=== PATIENT | female | born 1955 | race Caucasian/White ===

== ENCOUNTER → 2016-10-27 | Outpatient (CLI) | payer MEDICARE ==
--- NOTE | 2016-10-29 07:47 | XCELERA REPORT ---
[address] [address] Lower Extremity Arterial Evaluation Name: JAZMINE DUBOIS Age: 60 yrs Gender: Female : 1955 Patient Status: Outpatient Patient Location: Study Date: 10/27/2016 12:49 PM Procedure: A color flow and duplex scan of the lower extremity arteries was performed bilaterally with velocity and waveform anaylsis. Ankle brachial indicies performed. Reason For Study: ULCER Ordering Physician: MIKE ALCALA Performed By: Maureen Castaneda Measurements and Calculations Right Left TEACHING MANAGER PSV 113.1 215.5 cm/sec Prox PFA PSV -55.4 121.5 cm/sec Prox SFA PSV 84.1 146.7 cm/sec Mid SFA PSV -63.8 -128.9 cm/sec Dist SFA PSV -69.5 -111.4 cm/sec Prox Pop A PSV 59.1 99.8 cm/sec Dist BRIGIDA PSV 68.8 159.9 cm/sec Dist COMPUTER TECHNICAL SUPPORT SPECIALIST PSV 62.2 127.4 cm/sec Justice Pedis PSV 76.4 144.6 cm/sec Right Side Arterial Evaluation Slightly abnormal velocity, broadened, monophasic flow are present, from the Common Femoral artery down to the infrageniculate vessels. The ankle-brachial index is 0.7. 50-99 % stenosis is noted. At the Inflow arteries. Left Side Arterial Evaluation Normal velocity, waveform and triphasic flow are present, from the Common Femoral artery down to the Posterior Tibial artery. Biphasic in the Anterior Tibial artery. The ankle-brachial index is 1.02. 0-19 % stenosis is noted. At the Anterior Tibial artery. Interpretation Summary Severe hemodynamically significant lesions in the right lower extremity only, on duplex imaging, at rest. Mild hemodynamically significant lesions in the left lower extremity only, on duplex imaging, at rest. : MIKE ALCALA > Mike Alcala
--- NOTE | 2016-10-29 07:58 | XCELERA REPORT ---
[address] [address] Lower Extremity Venous Evaluation Name: JAZMINE DUBOIS Age: 60 yrs Gender: Female : 1955 Patient Status: Outpatient Patient Location: Study Date: 10/27/2016 01:18 PM Procedure: A bilateral duplex scan of the lower extremity veins was performed. The evaluation included responses to compression and other maneuvers with patient in the supine and standing positions to assess venous insufficiency. Reason For Study: ULCER Ordering Physician: MIKE ALCALA Performed By: Maureen Castaneda Right Sided Venous Evaluation Deep venous system evaluatiion shows patent veins with no obstruction or significant reflux identified. Sapheno Femoral junction: no reflux. Femoral vein reflux: no reflux. Greater Saphenous vein, Proximal thigh: reflux: no reflux. Greater Saphenous vein, Distal thigh: reflux: no reflux. Greater Saphenous vein, Proximal below knee: reflux: no reflux. No significant Perforators identified. Left Sided Venous Evaluation Deep venous system evaluatiion shows patent veins with no obstruction or significant reflux identified. Sapheno Femoral junction: no reflux. Femoral vein reflux: no reflux. Greater Saphenous vein, Proximal thigh: reflux: no reflux. Greater Saphenous vein, Distal thigh: reflux: no reflux. Greater Saphenous vein, Proximal below knee: reflux: no reflux. No significant Perforators identified. Interpretation Summary No duplex evidence of DVT or obstruction in the bilateral lower extremities. No significant reflux found in superficial or deep vessels. : MIKE ALCALA > Mike Alcala
== END ==
LOC: SP 12:36
PROVIDERS: ATTEND Surgery
DX: L97.512 Non-pressure chronic ulcer of other part of right foot with fat layer exposed (principal)
CPT/HCPCS: 93925; 93970